=== PATIENT | male | born 1965 | race Caucasian/White ===

== ENCOUNTER 2018-10-21 10:39 | Emergency (ER) | payer OTHER ==
[~2018-10-21] VITALS: Ht 170.2 cm; Wt 81.8 kg
[2018-10-21] MEDS ORDERED: SOD CHLORIDE 0.9% 1,000 ML IV STA (10:45)
[2018-10-21 10:49] VITALS: BP 139/79; PULSE 115; RESP 18; Ht 170.2 cm; Wt 81.8 kg
== END 2018-10-21 14:31 | disposition left against medical advice (07) ==
LOC: E/R 10:39
DX: F10.920 Alcohol use, unspecified with intoxication, uncomplicated (principal); R41.82 Altered mental status, unspecified
CPT/HCPCS: 36415; 70450; 80053; 80307; 85025; 99285; J7030